=== PATIENT | male | born 1985 | race Hispanic/Latino ===

== ENCOUNTER 2018-09-22 19:35 | Observation (INO) | payer SELFPAY ==
[2018-09-22] MEDS ORDERED: Acetaminophen 650mg/20.3ml solution UD PO STA (20:32)
[2018-09-22] MEDS ORDERED: Sodium Chloride 0.9% 1,000 ML IV STA (20:35)
--- NOTE | 2018-09-22 20:47 | ED PDOC ---
Arrival/HPI - General Chief Complaint: Abdominal Pain Time Seen by Provider: 09/22/18 19:38 Historian: Patient - History of Present Illness Narrative History of Present Illness (Text): 09/22/18 20:40 33M no past medical history, presents to the Emergency department with a 2 day hx of severe, non radiating, worsening epigastric abdominal pain. Pt reports vomiting bile and his food, unable to to tolerate foods. Pt states he has had gastric reflux before but this feels much worse and different. He says its worse with eating and when laying flat. Pt feels best curled forwards. Pt smokes tobacco and THC. ROS: Pos+ abdominal pain, vomiting, Neg- chest pain, shortness of breath, fevers, chills, jaundice, stool/urine changes, Time/Duration: < week Symptom Onset: Gradual Symptom Course: Worsening Quality: Stabbing, Cramping, Burning Severity Level: 10 Activities at Onset: Rest Past Medical History - Past History Past History: No Previous - Infectious Disease Hx of Infectious Diseases: None - Psychiatric Hx Depression: No Hx Emotional Abuse: No Hx Physical Abuse: No Hx Substance Use: No - Past Surgical History Past Surgical History: No Previous - Suicidal Assessment Feels Threatened In Home Enviroment: No Family/Social History Family/Social History: Unknown Family HX Hx Alcohol Use: Yes Hx Substance Use: No Hx Substance Use Treatment: No Allergies/Home Meds Allergies/Adverse Reactions: Allergies No Known Allergies Allergy (Verified 09/22/18 19:51) Home Medications: Home Meds Medication Instructions Recorded Confirmed No Known Home Med 09/22/18 09/22/18 Review of Systems - Review of Systems Constitutional: absent: Fevers, Night Sweats Eyes: absent: Vision Changes ENT: absent: Hearing Changes Respiratory: absent: SOB, Cough Cardiovascular: absent: Chest Pain, Palpitations Gastrointestinal: Abdominal Pain (diffuse, worse in epigastrum), Vomiting, Food Intolerance. absent: Stool Changes, Constipation, Diarrhea, Nausea Genitourinary Male: absent: Dysuria, Hematuria Musculoskeletal: absent: Arthralgias, Back Pain, Myalgias Skin: absent: Rash Neurological: absent: Headache Endocrine: absent: Diaphoresis Physical Exam Vital Signs Temp Pulse Resp BP Pulse Ox 09/22/18 19:54 98.3 F 51 L 18 138/75 99 Temperature: Afebrile Blood Pressure: Normal Pulse: Bradycardic Respiratory Rate: Normal Appearance: Positive for: Non-Toxic, Uncomfortable Pain Distress: Severe Mental Status: Positive for: Alert and Oriented X 3 - Systems Exam Head: Present: Atraumatic, Normocephalic Extroacular Muscles: Present: EOMI. No: Gaze Palsy Conjunctiva: Present: Normal. No: Injected, Icteric Mouth: Present: Moist Mucous Membranes. No: Dry, Normal Teeth (poor dentition) Pharnyx: No: ERYTHEMA, TONSILS ENLARGED Neck: Present: Normal Range of Motion Respiratory/Chest: Present: Clear to Auscultation. No: Respiratory Distress, Wheezes, Rales, Tachypneic Cardiovascular: Present: Normal S1, S2, Bradycardic. No: Murmurs Abdomen: Present: Rebound, Guarding, McBurney's Point Tender, Other (pos berry's) Back: No: CVA Tenderness, Paraspinal Tenderness Upper Extremity: Present: Normal Inspection, NORMAL PULSES Lower Extremity: Present: Normal Inspection, NORMAL PULSES Neurological: Present: GCS=15, CN II-XII Intact Skin: No: Rashes Psychiatric: Present: Alert, Oriented x 3, Normal Insight Medical Decision Making ED Course and Treatment: 09/22/18 21:06 possible pancreatitis, cholecystitis, gastritis, f/u CBC,CMP, Lipase, UDS, Urinalysis, CT AB Pelv w/ IV contrast NS bolus 1L STAT Zofran 4mg ivp, protonix 40mg vip, tylenol 650 oral soln 09/22/18 23:55 CT shows enlarged gallbladder US chows cholelithiasis GenSx resident called - RAD Interpretation Radiology Orders: 09/22/18 20:32 ABDOMEN & PELVIS [ABD & PELVIS IV CONTRAST ONLY] [CT] Stat 09/22/18 20:36 ABDOMEN COMPLETE [US] Stat - EKG Interpretation EKG Interpretation (Text): 09/22/18 23:54 46 NSR fernando Interpreted by ED Physician: Yes (normal BP, pt clinically stable) - Medication Orders Current Medication Orders: Sodium Chloride (Sodium Chloride 0.9%) 1,000 mls @ 999 mls/hr IV .Q1H1M STA Stop: 09/22/18 21:35 Discontinued Medications Acetaminophen (Tylenol 650mg/20.3ml Solution Ud) 650 mg PO STAT STA Stop: 09/22/18 20:33 Ondansetron HCl (Zofran Inj) 4 mg IVP STAT STA Stop: 09/22/18 20:33 Pantoprazole Sodium (Protonix Inj) 40 mg IVP STAT STA Stop: 09/22/18 20:36 Disposition/Present on Arrival - Present on Arrival Any Indicators Present on Arrival: No History of DVT/PE: No History of Uncontrolled Diabetes: No Urinary Catheter: No History of Decub. Ulcer: No History Surgical Site Infection Following: None - Disposition Have Diagnosis and Disposition been Completed?: Yes Diagnosis: Cholelithiasis, Abdominal pain Disposition: HOSPITALIZED Disposition Time: 02:13 Patient Plan: Admission Condition: STABLE
[2018-09-22] MEDS ORDERED: Morphine 4 mg/ml ISec IVP STA (21:54)
[2018-09-22 22:07] LABS: BASO # 0.03 K/mm3 (0.0-2.0); BASO % 0.4 % (0.0-3.0); EOS # 0.2 (0.0-0.7); EOS % 2.1 % (1.5-5.0); GRAN # 6.08 (1.4-6.5); GRAN % 74.6 % (50.0-68.0); LYMPH # 1.3 (1.2-3.4); LYMPH % 16.5 % (22.0-35.0); MEAN CELL VOLUME 91.6 fl (80.0-105.0); MEAN CORPUSCULAR HEMOGLOBIN 30.5 pg (25.0-35.0); MEAN CORPUSCULAR HGB CONC 33.3 g/dl (31.0-37.0); MONO # 0.5 (0.1-0.6); MONO % 6.4 % (1.0-6.0); RBC 5.24 10^6/uL (3.5-6.1); RED CELL DISTRIBUTION WIDTH 13.3 % (11.5-14.5); WHITE BLOOD COUNT 8.1 10^3/uL (4.5-11.0)
[2018-09-22 22:16] LABS: ALB/GLOB RATIO 1.4 (1.1-1.8); ALT/SGPT 28 U/L (7-56); AST/SGOT 32 U/L (17-59); BLOOD UREA NITROGEN 10 mg/dL (7-21); CALCIUM 9.5 mg/dL (8.4-10.5); GFR NON-AFRICAN AMERICAN > 60; LIPASE 40 U/L (23-300)
[2018-09-22] MEDS ORDERED: Iohexol 350 MG/100 ML VIAL ONE (22:33)
[2018-09-22] MEDS ORDERED: Sodium Chloride 0.9% 1,000 ML IV SCH (23:00)
[2018-09-23] MEDS ORDERED: Morphine 2 mg/ml ISec IVP STA (00:22)
[2018-09-23 00:40] LABS: INR 1.04; PARTIAL THROMBOPLASTIN TIME 30.9 Seconds (25.1-36.5); PROTHROMBIN TIME 11.9 SECONDS (9.4-12.5)
--- NOTE | 2018-09-23 00:57 | CP.PCM.CON ---
History of Present Illness - History of Present Illness History of Present Illness: Surgery Consult Note- Dr. Hill Reason for consult: Symptomatic Cholelithiasis 33M pmhx significant for chronic tobacco use presents to [facility] ED w/ progressively worsening sharp Mid-epigastric abdominal pain, wraps around right side radiating to the back that started 2 days ago. Patient denies any alleviating factors. States had pain similar in the past however would spontaneously resolves. Associated nausea and non-bloody, bilious vomiting over the last two days. + subjective fevers. last meal was 17:00 yesterday (pearce chicken sandwich). Admits to eating fatty meals. Of note patient had intentional weight loss of 100lbs over 10 years. Denies: Chills, chest pain, shortness of breath, changes in urinary, bowel habits, recent sick contacts, foreign travel PMH: Denies PSH: Denies ALL: NKDA SocialHx: admits to tobacco use 1ppd for > 15 years, + THC use daily. denies etoh, other recreational drug use FH: mother had cholecystectomy 12 pt ROS conducted, negative otherwise stated above Review of Systems - Review of Systems All systems: reviewed and no additional remarkable complaints except - Constitutional Constitutional: As Per HPI Past Patient History - Infectious Disease Hx of Infectious Diseases: None - Past Social History Smoking Status: Heavy Smoker > 10 Cigarettes Daily - MUSCULOSKELETAL/RHEUMATOLOGICAL Other/Comment: Rt hand fx - PSYCHIATRIC Hx Depression: No Hx Emotional Abuse: No Hx Physical Abuse: No Hx Substance Use: No Meds Allergies/Adverse Reactions: Allergies Allergy/AdvReac Type Severity Reaction Status Date / Time No Known Allergies Allergy Verified 09/22/18 19:51 - Medications Medications: Current Medications Acetaminophen (Tylenol 325mg Tab) 650 mg PO Q4 PRN PRN Reason: Fever >100.4 F Acetaminophen (Tylenol 325mg Tab) 650 mg PO Q6H PRN PRN Reason: Pain, Mild (1-3) Hydromorphone HCl (Dilaudid) 0.5 mg IVP Q4H PRN PRN Reason: Pain, moderate (4-7) Lactated Ringer's (Lactated Ringer's) 1,000 mls @ 9,999 mls/hr IV .Q6M STEPHANE Stop: 09/23/18 01:05 Lactated Ringer's (Lactated Ringer's) 1,000 mls @ 115 mls/hr IV .Q8H42M STEPHANE Nicotine (Nicoderm Cq) 1 patch TD DAILY STEPHANE Ondansetron HCl (Zofran Inj) 4 mg IVP Q4H PRN PRN Reason: Nausea/Vomiting Physical Exam - Constitutional Appears: Non-toxic, No Acute Distress - Head Exam Head Exam: ATRAUMATIC - Eye Exam Eye Exam: EOMI. absent: Scleral icterus - ENT Exam ENT Exam: Mucous Membranes Moist - Respiratory Exam Respiratory Exam: NORMAL BREATHING PATTERN. absent: Accessory Muscle Use, Respiratory Distress - Cardiovascular Exam Cardiovascular Exam: Bradycardia, REGULAR RHYTHM, +S1, +S2. absent: Tachycardia - GI/Abdominal Exam GI & Abdominal Exam: Soft, Tenderness (diffusely tender, localized RUQ. + Lee sign). absent: Distended, Firm, Guarding, Hernia, Rigid - Neurological Exam Neurological exam: Alert, Oriented x3 - Psychiatric Exam Psychiatric exam: Normal Affect - Skin Skin Exam: Intact, Warm Results - Vital Signs Recent Vital Signs: Last Vital Signs Temp 97.9 F 09/23/18 00:21 Pulse 53 L 09/23/18 00:21 Resp 18 09/23/18 00:21 BP 127/66 09/23/18 00:21 Pulse Ox 99 09/23/18 00:21 - Labs Result Diagrams: 09/22/18 21:35 09/22/18 21:35 Labs: Laboratory Results - last 24 hr 09/22/18 09/22/18 09/22/18 21:35 21:35 21:35 WBC 8.1 RBC 5.24 Hgb 16.0 Hct 48.0 MCV 91.6 MCH 30.5 MCHC 33.3 RDW 13.3 Plt Count 147 MPV 12.0 H Gran % 74.6 H Lymph % (Auto) 16.5 L [place] % (Auto) 6.4 H Eos % (Auto) 2.1 Baso % (Auto) 0.4 Gran # 6.08 Lymph # (Auto) 1.3 [place] # (Auto) 0.5 Eos # (Auto) 0.2 Baso # (Auto) 0.03 PT 11.9 INR 1.04 APTT 30.9 Sodium 142 Potassium 3.6 Chloride 103 Carbon Dioxide 31 Anion Gap 12 BUN 10 Creatinine 0.8 Est GFR ( Amer) > 60 Est GFR (Non-Af Amer) > 60 Random Glucose 95 Calcium 9.5 Phosphorus 3.1 Magnesium 2.2 Total Bilirubin 0.6 AST 32 ALT 28 Alkaline Phosphatase 84 Troponin I Total Protein 8.5 H Albumin 5.0 H Globulin 3.5 Albumin/Globulin Ratio 1.4 Lipase 40 TSH 3rd Generation 09/22/18 09/22/18 23:09 23:09 WBC RBC Hgb Hct MCV MCH MCHC RDW Plt Count MPV Gran % Lymph % (Auto) [place] % (Auto) Eos % (Auto) Baso % (Auto) Gran # Lymph # (Auto) [place] # (Auto) Eos # (Auto) Baso # (Auto) PT INR APTT Sodium Potassium Chloride Carbon Dioxide Anion Gap BUN Creatinine Est GFR ( Amer) Est GFR (Non-Af Amer) Random Glucose Calcium Phosphorus Magnesium Total Bilirubin AST ALT Alkaline Phosphatase Troponin I < 0.01 Total Protein Albumin Globulin Albumin/Globulin Ratio Lipase TSH 3rd Generation 1.86 Assessment & Plan - Assessment and Plan (Free Text) Assessment: 33M w/ symptomatic cholelithiasis Plan: - Pain control PRN - Anti-emetic - NPO - IVF - Plan for OR tomorrow AM for cholecystectomy - further recs per Dr. Hill surgical attending PGY2
[2018-09-23] MEDS ORDERED: Lactated Ringer's 1,000 ML IV SCH (01:00)
[2018-09-23 01:16] LABS: PH,URINE 7.5 (4.7-8.0); URINE BILIRUBIN NEGATIVE (NEGATIVE); URINE BLOOD NEGATIVE (NEGATIVE); URINE GLUCOSE (UA) NEGATIVE (NEGATIVE); URINE LEUKOCYTE ESTERASE NEGATIVE Leu/uL (NEGATIVE); URINE PROTEIN NEGATIVE mg/dL (<30 mg/dL); URINE UROBILINOGEN 0.2 E.U./dL (<1 E.U./dL)
[2018-09-23] MEDS: Lactated Ringer's 1,000 ML IV SCH ×2 (01:35→09:12)
[2018-09-23 01:41] LABS: URINE APPEARANCE CLEAR (CLEAR); URINE COLOR YELLOW (YELLOW)
[2018-09-23 01:44] LABS: BARBITURATES, UR NEGATIVE (NEGATIVE); BENZODIAZEPINES, UR NEGATIVE (NEGATIVE); OPIATES, UR POSITIVE (NEGATIVE); PHENCYCLIDINE, UR NEGATIVE (NEGATIVE)
--- NOTE | 2018-09-23 01:51 | CP.PCM.HP ---
<KyYan dorantes - Last Filed: 09/23/18 03:47> History of Present Illness - History of Present Illness History of Present Illness: Yan Curiel DO PGY1. H&P Hospitalist Service, Dr Michelle Blake: RUQ pain 33 y/o male with PMH of GERD presents to the ED with 2 days h/o RUQ abdominal pain that was 10/10 started 2 hours after eating pizza, sharp, intermittent, radiates to the back, worsens by food or laying supine, relieved by curling body in position. Pain is associated with bilious vomiting x2, nausea and became diffuse to the whole abdomen. He admits to have GERD symptoms but this episode of pain is different. Patient denied fever, diarrhea, hematemesis, blood per rectum, dark stool, CP, SOB, palpitations, rash. He also denied NSAID use, steroid use, recent travel or sick contacts. 12 pointS ROS reviewed with pertinent positive as above PMH: GERD PSH: denied All:NKDA Meds: none SH: smokes 1/2 ppd x15 year, marijuana daily, no alcohol use FH: mother and sister had gall bladder disease with cholecystectomy Present on Admission - Present on Admission Any Indicators Present on Admission: No Past Patient History - Infectious Disease Hx of Infectious Diseases: None - Past Social History Smoking Status: Heavy Smoker > 10 Cigarettes Daily - MUSCULOSKELETAL/RHEUMATOLOGICAL Other/Comment: Rt hand fx - PSYCHIATRIC Hx Depression: No Hx Emotional Abuse: No Hx Physical Abuse: No Hx Substance Use: No Meds Allergies/Adverse Reactions: Allergies Allergy/AdvReac Type Severity Reaction Status Date / Time No Known Allergies Allergy Verified 09/22/18 19:51 Physical Exam - Constitutional Appears: Well, Non-toxic, No Acute Distress - Head Exam Head Exam: ATRAUMATIC, NORMAL INSPECTION, NORMOCEPHALIC - Eye Exam Eye Exam: EOMI, Normal appearance, PERRL Pupil Exam: NORMAL ACCOMODATION, PERRL - ENT Exam ENT Exam: Mucous Membranes Dry - Neck Exam Neck exam: Positive for: Normal Inspection - Respiratory Exam Respiratory Exam: Clear to Auscultation Bilateral, NORMAL BREATHING PATTERN. absent: Rales, Rhonchi, Wheezes - Cardiovascular Exam Cardiovascular Exam: REGULAR RHYTHM, +S1, +S2. absent: Gallop, Rubs - GI/Abdominal Exam GI & Abdominal Exam: Hypoactive Bowel Sounds, Soft. absent: Organomegaly, Rebound, Tenderness Additional comments: diffuse tender to palpate + Lee sign - Extremities Exam Extremities exam: Positive for: normal capillary refill, normal inspection, pedal pulses present - Back Exam Back exam: NORMAL INSPECTION - Neurological Exam Neurological exam: Alert, CN II-XII Intact, Oriented x3, Reflexes Normal - Skin Skin Exam: Dry, Intact, Normal Color, Warm Results - Vital Signs Recent Vital Signs: Last Vital Signs Temp 97.9 F 09/23/18 00:21 Pulse 53 L 09/23/18 00:21 Resp 18 09/23/18 00:21 BP 127/66 09/23/18 00:21 Pulse Ox 99 09/23/18 00:21 - Labs Result Diagrams: 09/22/18 21:35 09/22/18 21:35 Labs: Laboratory Results - last 24 hr 09/22/18 09/22/18 09/22/18 21:35 21:35 21:35 WBC 8.1 RBC 5.24 Hgb 16.0 Hct 48.0 MCV 91.6 MCH 30.5 MCHC 33.3 RDW 13.3 Plt Count 147 MPV 12.0 H Gran % 74.6 H Lymph % (Auto) 16.5 L [place] % (Auto) 6.4 H Eos % (Auto) 2.1 Baso % (Auto) 0.4 Gran # 6.08 Lymph # (Auto) 1.3 [place] # (Auto) 0.5 Eos # (Auto) 0.2 Baso # (Auto) 0.03 PT 11.9 INR 1.04 APTT 30.9 Sodium 142 Potassium 3.6 Chloride 103 Carbon Dioxide 31 Anion Gap 12 BUN 10 Creatinine 0.8 Est GFR ( Amer) > 60 Est GFR (Non-Af Amer) > 60 Random Glucose 95 Calcium 9.5 Phosphorus 3.1 Magnesium 2.2 Total Bilirubin 0.6 AST 32 ALT 28 Alkaline Phosphatase 84 Troponin I Total Protein 8.5 H Albumin 5.0 H Globulin 3.5 Albumin/Globulin Ratio 1.4 Lipase 40 TSH 3rd Generation Urine Color Urine Appearance Urine pH Ur Specific [place] Urine Protein Urine Glucose (UA) Urine Ketones Urine Blood Urine Nitrate Urine Bilirubin Urine Urobilinogen Ur Leukocyte Esterase Urine Opiates Screen Urine Methadone Screen Ur Barbiturates Screen Ur Phencyclidine Scrn Ur Amphetamines Screen U Benzodiazepines Scrn U Oth Cocaine Metabols U Cannabinoids Screen 09/22/18 09/22/18 09/23/18 23:09 23:09 01:05 WBC RBC Hgb Hct MCV MCH MCHC RDW Plt Count MPV Gran % Lymph % (Auto) [place] % (Auto) Eos % (Auto) Baso % (Auto) Gran # Lymph # (Auto) [place] # (Auto) Eos # (Auto) Baso # (Auto) PT INR APTT Sodium Potassium Chloride Carbon Dioxide Anion Gap BUN Creatinine Est GFR ( Amer) Est GFR (Non-Af Amer) Random Glucose Calcium Phosphorus Magnesium Total Bilirubin AST ALT Alkaline Phosphatase Troponin I < 0.01 Total Protein Albumin Globulin Albumin/Globulin Ratio Lipase TSH 3rd Generation 1.86 Urine Color Urine Appearance Urine pH Ur Specific [place] Urine Protein Urine Glucose (UA) Urine Ketones Urine Blood Urine Nitrate Urine Bilirubin Urine Urobilinogen Ur Leukocyte Esterase Urine Opiates Screen Positive H Urine Methadone Screen Negative Ur Barbiturates Screen Negative Ur Phencyclidine Scrn Negative Ur Amphetamines Screen Negative U Benzodiazepines Scrn Negative U Oth Cocaine Metabols Negative U Cannabinoids Screen Positive H 09/23/18 01:05 WBC RBC Hgb Hct MCV MCH MCHC RDW Plt Count MPV Gran % Lymph % (Auto) [place] % (Auto) Eos % (Auto) Baso % (Auto) Gran # Lymph # (Auto) [place] # (Auto) Eos # (Auto) Baso # (Auto) PT INR APTT Sodium Potassium Chloride Carbon Dioxide Anion Gap BUN Creatinine Est GFR ( Amer) Est GFR (Non-Af Amer) Random Glucose Calcium Phosphorus Magnesium Total Bilirubin AST ALT Alkaline Phosphatase Troponin I Total Protein Albumin Globulin Albumin/Globulin Ratio Lipase TSH 3rd Generation Urine Color Yellow Urine Appearance Clear Urine pH 7.5 Ur Specific [place] 1.010 Urine Protein Negative Urine Glucose (UA) Negative Urine Ketones 15 H Urine Blood Negative Urine Nitrate Negative Urine Bilirubin Negative Urine Urobilinogen 0.2 Ur Leukocyte Esterase Negative Urine Opiates Screen Urine Methadone Screen Ur Barbiturates Screen Ur Phencyclidine Scrn Ur Amphetamines Screen U Benzodiazepines Scrn U Oth Cocaine Metabols U Cannabinoids Screen Assessment & Plan - Assessment and Plan (Free Text) Assessment: 33 y/o male with PMH of GERD presents to the ED with 2 days h/o RUQ abdominal pain. ABD U/S and CT A/P showed gall bladder thickening with distention and cholilithiasis There is no leukocytosis, afebrile, hemodynamically stable Plan: Acute RUQ abdominal pain due to symptomatic cholelithiasis: -abd U/S: gallbladder wall thickening, cholelithiasis -CT A/P: distended gall bladder and wall thickening -started rocephine, falgyl -continue LR@ 115 cc/hr -pain management prn- tylenol, dilaudid -surgery following (Dr Hill) for lap swati in am -continue protonix, zofran -NPO DVT/GI ppx: -protonix -SCD Case reviewed and plan discussed with attending Dr Michelle Curiel, DO, PGY1 <Vinayak Martinez - Last Filed: 09/23/18 06:48> Results - Vital Signs Recent Vital Signs: Last Vital Signs Temp 97.9 F 09/23/18 00:21 Pulse 53 L 09/23/18 00:21 Resp 20 09/23/18 03:26 BP 127/66 09/23/18 00:21 Pulse Ox 99 09/23/18 00:21 - Labs Result Diagrams: 09/22/18 21:35 09/22/18 21:35 Labs: Laboratory Results - last 24 hr 09/22/18 09/22/18 09/22/18 21:35 21:35 21:35 WBC 8.1 RBC 5.24 Hgb 16.0 Hct 48.0 MCV 91.6 MCH 30.5 MCHC 33.3 RDW 13.3 Plt Count 147 MPV 12.0 H Gran % 74.6 H Lymph % (Auto) 16.5 L [place] % (Auto) 6.4 H Eos % (Auto) 2.1 Baso % (Auto) 0.4 Gran # 6.08 Lymph # (Auto) 1.3 [place] # (Auto) 0.5 Eos # (Auto) 0.2 Baso # (Auto) 0.03 PT 11.9 INR 1.04 APTT 30.9 Sodium 142 Potassium 3.6 Chloride 103 Carbon Dioxide 31 Anion Gap 12 BUN 10 Creatinine 0.8 Est GFR ( Amer) > 60 Est GFR (Non-Af Amer) > 60 Random Glucose 95 Calcium 9.5 Phosphorus 3.1 Magnesium 2.2 Total Bilirubin 0.6 AST 32 ALT 28 Alkaline Phosphatase 84 Troponin I Total Protein 8.5 H Albumin 5.0 H Globulin 3.5 Albumin/Globulin Ratio 1.4 Lipase 40 TSH 3rd Generation Urine Color Urine Appearance Urine pH Ur Specific [place] Urine Protein Urine Glucose (UA) Urine Ketones Urine Blood Urine Nitrate Urine Bilirubin Urine Urobilinogen Ur Leukocyte Esterase Urine Opiates Screen Urine Methadone Screen Ur Barbiturates Screen Ur Phencyclidine Scrn Ur Amphetamines Screen U Benzodiazepines Scrn U Oth Cocaine Metabols U Cannabinoids Screen 09/22/18 09/22/18 09/23/18 23:09 23:09 01:05 WBC RBC Hgb Hct MCV MCH MCHC RDW Plt Count MPV Gran % Lymph % (Auto) [place] % (Auto) Eos % (Auto) Baso % (Auto) Gran # Lymph # (Auto) [place] # (Auto) Eos # (Auto) Baso # (Auto) PT INR APTT Sodium Potassium Chloride Carbon Dioxide Anion Gap BUN Creatinine Est GFR ( Amer) Est GFR (Non-Af Amer) Random Glucose Calcium Phosphorus Magnesium Total Bilirubin AST ALT Alkaline Phosphatase Troponin I < 0.01 Total Protein Albumin Globulin Albumin/Globulin Ratio Lipase TSH 3rd Generation 1.86 Urine Color Urine Appearance Urine pH Ur Specific [place] Urine Protein Urine Glucose (UA) Urine Ketones Urine Blood Urine Nitrate Urine Bilirubin Urine Urobilinogen Ur Leukocyte Esterase Urine Opiates Screen Positive H Urine Methadone Screen Negative Ur Barbiturates Screen Negative Ur Phencyclidine Scrn Negative Ur Amphetamines Screen Negative U Benzodiazepines Scrn Negative U Oth Cocaine Metabols Negative U Cannabinoids Screen Positive H 09/23/18 01:05 WBC RBC Hgb Hct MCV MCH MCHC RDW Plt Count MPV Gran % Lymph % (Auto) [place] % (Auto) Eos % (Auto) Baso % (Auto) Gran # Lymph # (Auto) [place] # (Auto) Eos # (Auto) Baso # (Auto) PT INR APTT Sodium Potassium Chloride Carbon Dioxide Anion Gap BUN Creatinine Est GFR ( Amer) Est GFR (Non-Af Amer) Random Glucose Calcium Phosphorus Magnesium Total Bilirubin AST ALT Alkaline Phosphatase Troponin I Total Protein Albumin Globulin Albumin/Globulin Ratio Lipase TSH 3rd Generation Urine Color Yellow Urine Appearance Clear Urine pH 7.5 Ur Specific [place] 1.010 Urine Protein Negative Urine Glucose (UA) Negative Urine Ketones 15 H Urine Blood Negative Urine Nitrate Negative Urine Bilirubin Negative Urine Urobilinogen 0.2 Ur Leukocyte Esterase Negative Urine Opiates Screen Urine Methadone Screen Ur Barbiturates Screen Ur Phencyclidine Scrn Ur Amphetamines Screen U Benzodiazepines Scrn U Oth Cocaine Metabols U Cannabinoids Screen Attending/Attestation - Attestation I have personally seen and examined this patient.: Yes I have fully participated in the care of the patient.: Yes I have reviewed all pertinent clinical information: Yes
[2018-09-23] MEDS: metroNIDAZOLE IV 500 mg/100 ml 500 MG/100 ML BAG IVPB SCH ×2 (02:20→07:05)
[2018-09-23] MEDS: HYDROmorphone 0.5 mg/0.5 ml ISec IVP PRN ×2 (03:01→09:51)
[2018-09-23 04:21] VITALS: RESP 20; BMI 22.3
[2018-09-23 07:20] LABS: BASO # 0.04 K/mm3 (0.0-2.0); BASO % 0.6 % (0.0-3.0); EOS # 0.1 (0.0-0.7); EOS % 1.5 % (1.5-5.0); GRAN # 4.32 (1.4-6.5); GRAN % 60.9 % (50.0-68.0); MEAN CELL VOLUME 90.6 fl (80.0-105.0); MEAN CORPUSCULAR HEMOGLOBIN 29.7 pg (25.0-35.0); MEAN CORPUSCULAR HGB CONC 32.7 g/dl (31.0-37.0); MEAN PLATELET VOLUME 11.3 fl (7.0-11.0); MONO # 0.6 (0.1-0.6); RBC 4.35 10^6/uL (3.5-6.1); RED CELL DISTRIBUTION WIDTH 13.2 % (11.5-14.5); WHITE BLOOD COUNT 7.1 10^3/uL (4.5-11.0)
[2018-09-23 07:22] LABS: HEMOGLOBIN 12.9 g/dL (14.0-18.0)
[2018-09-23 07:32] LABS: ALB/GLOB RATIO 1.3 (1.1-1.8); ALBUMIN 3.4 g/dL (3.0-4.8); ALT/SGPT 48 U/L (7-56); AST/SGOT 56 U/L (17-59); BLOOD UREA NITROGEN 7 mg/dL (7-21); CALCIUM 8.3 mg/dL (8.4-10.5); GFR NON-AFRICAN AMERICAN > 60
[2018-09-23 08:30] VITALS: BP 98/46; PULSE 60; TEMP 98.1; O2SAT 100
--- NOTE | 2018-09-23 08:43 | RAD ---
Date of service: 09/23/2018 HISTORY: fernando COMPARISON: 10/13/2012 TECHNIQUE: Chest PA and lateral FINDINGS: LUNGS: No active pulmonary disease. PLEURA: No significant pleural effusion identified. No pneumothorax apparent. CARDIOVASCULAR: No aortic atherosclerotic calcification present. Normal cardiac size. No pulmonary vascular congestion. OSSEOUS STRUCTURES: No significant abnormalities. VISUALIZED UPPER ABDOMEN: Normal. OTHER FINDINGS: None. IMPRESSION: No active disease.
--- NOTE | 2018-09-23 09:07 | CT ---
Date of service: 09/22/2018 PROCEDURE: CT Abdomen and Pelvis with contrast HISTORY: severe abdominal pain, positive berry's COMPARISON: None. TECHNIQUE: Contrast dose: Radiation dose: Total exam DLP = 343.18 mGy-cm. This CT exam was performed using one or more of the following dose reduction techniques: Automated exposure control, adjustment of the mA and/or kV according to patient size, and/or use of iterative reconstruction technique. FINDINGS: LOWER THORAX: 4 millimeter nonspecific nodule in the left lower lobe lateral segment. LIVER: Mild periportal edema. No gross lesion or ductal dilatation. GALLBLADDER AND BILE DUCTS: Gallstone present with question minimal wall thickening. No pericholecystic fluid. Correlate clinically for cholecystitis. PANCREAS: Unremarkable. No gross lesion or ductal dilatation. SPLEEN: Unremarkable. ADRENALS: Unremarkable. No mass. KIDNEYS AND URETERS: Unremarkable. No hydronephrosis. No solid mass. VASCULATURE: Unremarkable. No aortic aneurysm. No aortic atherosclerotic calcification or mural plaque present. BOWEL: Unremarkable. No obstruction. No gross mural thickening. APPENDIX: Normal appendix. PERITONEUM: Unremarkable. No free fluid. No free air. LYMPH NODES: Unremarkable. No enlarged lymph nodes. BLADDER: Unremarkable. REPRODUCTIVE: Unremarkable. BONES: No acute fracture. OTHER FINDINGS: None. IMPRESSION: Gallstone present with question minimal wall thickening. No pericholecystic fluid. Correlate clinically for cholecystitis. Mild periportal edema. 4 millimeter nonspecific nodule in the left lower lobe lateral segment.
--- NOTE | 2018-09-23 09:19 | CARD ---
APPROVED REPORT Date of service: 09/22/2018 EKG Measurement Heart [id number] <Conclusion> Coronary sinus rhythm
--- NOTE | 2018-09-23 09:21 | CARD ---
APPROVED REPORT Date of service: 09/22/2018 EKG Measurement Heart [id number] <Conclusion> Junctional rhythm
[2018-09-23] MEDS ORDERED: cefTRIAXone 1 gm 1 GM/100 ML BAG IVPB SCH (10:00)
--- NOTE | 2018-09-23 10:48 | US ---
Date of service: 09/22/2018 HISTORY: cholecystitis, pancreatitis, appendicitis? COMPARISON: None. TECHNIQUE: Sonographic evaluation of the abdomen. FINDINGS: LIVER: Measures 14.2 cm. Normal echogenicity of the liver parenchyma. No mass. No intrahepatic bile duct dilatation. GALLBLADDER: Gallstones COMMON BILE DUCT: Measures 5 mm. No stones. No dilatation. PANCREAS: Unremarkable as visualized. No mass. No ductal dilatation. RIGHT KIDNEY: Measures 11.2 x 4.3 x 5.5cm. Normal echogenicity. No calculus, mass, or hydronephrosis. LEFT KIDNEY: Measures 10.7 x 5.3 x 4.8cm. Normal echogenicity. No calculus, mass, or hydronephrosis. SPLEEN: Normal in size and contour. No mass. 8.2 x 4.0 x 3.9 AORTA: No aneurysmal dilatation. IVC: Unremarkable. OTHER FINDINGS: The report concurs with the preliminary [facility] report IMPRESSION: Gallstones. No evidence of acute cholecystitis
--- NOTE | 2018-09-23 13:14 | CP.PCM.PN ---
Subjective - Date & Time of Evaluation Date of Evaluation: 09/23/18 Time of Evaluation: 07:10 - Subjective Subjective: General Surgery progress note for Dr. Hill Pt seen and examined at bedside this AM. No adverse events overnight though patient states he has persistent epigastric pain currently controlled on IV anel medications. Discussed surgical options with him and the fact that his procedure would be postponed until 09/26 AM. Pt expressed desire to return home and come back for the procedure as an outpatient. Objective - Vital Signs/Intake and Output Vital Signs (last 24 hours): Temp Pulse Resp BP Pulse Ox 98.1 F 60 20 98/46 L 100 09/23/18 07:00 09/23/18 07:00 09/23/18 07:00 09/23/18 07:00 09/23/18 07:00 - Medications Medications: Current Medications Acetaminophen (Tylenol 325mg Tab) 650 mg PO Q4 PRN PRN Reason: Fever >100.4 F Acetaminophen (Tylenol 325mg Tab) 650 mg PO Q6H PRN PRN Reason: Pain, Mild (1-3) Hydromorphone HCl (Dilaudid) 0.5 mg IVP Q4H PRN PRN Reason: Pain, moderate (4-7) Last Admin: 09/23/18 09:51 Dose: 0.5 mg Lactated Ringer's (Lactated Ringer's) 1,000 mls @ 115 mls/hr IV .[id number] [facility] Last Admin: 09/23/18 09:12 Dose: 115 mls/hr Metronidazole (Flagyl) 500 mg in 100 mls @ 100 mls/hr IVPB Q8 STEPHANE; Protocol Last Admin: 09/23/18 07:05 Dose: 100 mls/hr Ceftriaxone Sodium (Rocephin 1 Gram Ivpb) 1 gm in 100 mls @ 100 mls/hr IVPB DAILY [facility]; Protocol Last Admin: 09/23/18 09:11 Dose: 100 mls/hr Nicotine (Nicoderm Cq) 1 patch TD DAILY [facility] Last Admin: 09/23/18 09:12 Dose: Not Given Ondansetron HCl (Zofran Inj) 4 mg IVP Q4H PRN PRN Reason: Nausea/Vomiting Pantoprazole Sodium (Protonix Inj) 40 mg IVP Q12 [facility] Last Admin: 09/23/18 09:11 Dose: 40 mg - Labs Labs: 09/23/18 06:45 09/23/18 06:45 PT 11.9 SECONDS (9.4-12.5) 09/22/18 21:35 INR 1.04 09/22/18 21:35 APTT 30.9 Seconds (25.1-36.5) 09/22/18 21:35 - Constitutional Appears: Well, Non-toxic, No Acute Distress - Head Exam Head Exam: ATRAUMATIC, NORMOCEPHALIC - Eye Exam Eye Exam: Normal appearance. absent: Conjunctival injection, Scleral icterus - ENT Exam ENT Exam: Mucous Membranes Moist, Normal Oropharynx - Respiratory Exam Respiratory Exam: NORMAL BREATHING PATTERN. absent: Accessory Muscle Use, Respiratory Distress - Cardiovascular Exam Cardiovascular Exam: RRR - GI/Abdominal Exam GI & Abdominal Exam: Soft, Tenderness (mild epigastric tenderness to palpation). absent: Distended - Extremities Exam Extremities Exam: absent: Calf Tenderness, Pedal Edema, Tenderness - Neurological Exam Neurological Exam: Alert, Awake, Oriented x3 - Psychiatric Exam Psychiatric exam: Normal Affect, Normal Mood - Skin Skin Exam: Dry, Normal Color, Warm Assessment and Plan - Assessment and Plan (Free Text) Assessment: 33M with epigastric abdominal pain, likely d/t symptomatic cholelithiasis Plan: Plan for cholecystectomy on 09/26 Patient may be discharged with PO pain medications and a low fat diet to return as a same day procedure PRN pain and nausea medication while in the hospital May start a heart healthy diet Will continue to follow while inpatient Discussed with Dr. Sergio Bhandari, PGY2
== END 2018-09-23 16:50 | disposition home or self-care (01) ==
LOC: ED 19:35 → ERH 09-23 00:48 → INTOOBSV 09-23 00:48 → OBSVTOIN 09-23 01:00 → INTOOBSV 09-23 01:00 → ERH 09-23 02:02 → 5RNO 09-23 02:40
PROVIDERS: ADMIT Internal Medicine; ATTEND Internal Medicine
DX: K80.20 Calculus of gallbladder without cholecystitis without obstruction (principal); K21.9 Gastro-esophageal reflux disease without esophagitis; F12.90 Cannabis use, unspecified, uncomplicated; F17.210 Nicotine dependence, cigarettes, uncomplicated
CPT/HCPCS: 36415; 71046; 74177; 76700; 80053; 81003; 83690; 83735; 84100; 84443; 84484; 85025; 85610; 85730; 86850; 86900; 93005; 96361; 96365; 96375; 96376; 99284; C9113; G0378; G0480; J0696; J1170; J2270; J2405; J2765; J7030; J7120; Q9967